=== PATIENT | male | born 1940 | race Caucasian/White ===

== ENCOUNTER → 2017-08-03 | Outpatient (CLI) | payer OTHER ==
[~2017-08-03] MED LIST: AMLO-96 PO; ASPI81TA86 PO; ATEN-65 PO; ATR80PT PO; AZIT-17 PO; CHOL10005 PO; CLOP75TA PO; FLU180SY9 IM; LAMO200T3 PO; LEVO75TA73 PO; RANI-318 PO
== END ==
LOC: RESP 02:49
PROVIDERS: ATTEND Internal Medicine
DX: R56.9 Unspecified convulsions (principal)
CPT/HCPCS: 95819

== ENCOUNTER → 2017-10-30 | Outpatient (CLI) | payer MEDICARE ==
[~2017-10-30] MED LIST changes: +LAMO100T5 PO; +LAMO50TA PO
[2017-10-30 09:00] LABS: PLATELET COUNT, AUTOMATED 203 K/uL (150-450)
[2017-10-30 09:30] LABS: LDL CHOLESTEROL 55 mg/dl
== END ==
LOC: LAB 08:41
PROVIDERS: ATTEND Internal Medicine
DX: I25.10 Atherosclerotic heart disease of native coronary artery without angina pectoris (principal); I10 Essential (primary) hypertension; R73.9 Hyperglycemia, unspecified; E03.9 Hypothyroidism, unspecified; E78.5 Hyperlipidemia, unspecified
CPT/HCPCS: 36415; 82040; 82247; 82310; 82374; 82435; 82465; 82565; 82947; 83036; 83718; 84075; 84132; 84155; 84295; 84443; 84450; 84460; 84478; 84520; 85025

== ENCOUNTER 2017-12-03 11:51 | Emergency (ER) | payer MEDICARE, OTHER ==
--- NOTE | 2017-12-03 12:05 | ER Report ---
History and Physical Time Seen By MD: 12:05 Hx. of Stated Complaint: pt presents with dizziness for an hour, pressure in head and down back of r neck. Thinks he may be slurring his words, but sound clear at this time, feels clammy, chilled HPI/ROS CHIEF COMPLAINT: Headache, chills HISTORY OF PRESENT ILLNESS: 77-year-old male patient presents to emergency room with complaint of headache and chills. Patient states this been going on for the past 2 hours. He states that he felt pressure in his back that radiated up to his head. He states that he hadn't developed a headache on the right side. He states that his speech was slurred, however that has resolved. He states that he has felt a little bit dizzy. Patient states that is noticed that his right eye is slightly blurred. He states that this has not happened in the past. He states that he has had vision disturbances in the past when he is had MIs. He states that he is not having any difficulty breathing, no shortness of breath. He states that he has not taken any medication for this. He's not had any changes in his medication. He states that he is also noticed that he is sleeping a lot. States that he's tired in the morning, he will take naps after lunch, dinner. Cc sleeping well at night. He has been using his 's oxygen intermittently. REVIEW OF SYSTEMS: Respiratory: As noted above Cardiovascular: No chest pain, no palpitations. Gastrointestinal: No vomiting, no abdominal pain. Musculoskeletal: No back pain. Allergies: Coded Allergies: No Known Drug Allergies (Unverified , 12/03/17) Home Meds Active Scripts Atorvastatin (LIPITOR) 80 Mg Tab, 1 TAB PO QDAY, #90 TAB 3 Refills Prov:AMY MONTAGUE MD 11/16/17 Atenolol (ATENOLOL) 25 Mg Tablet, 1 TAB PO QDAY, #30 TAB Patient needs to complete labs before more refills are allotted Prov:AMY MONTAGUE MD 10/26/17 Clopidogrel Bisulfate (CLOPIDOGREL) 75 Mg Tablet, 1 TAB PO QDAY, #90 TAB 3 Refills Prov:AMY MONTAGUE MD 09/15/17 Levothyroxine Sodium (LEVOTHYROXINE SODIUM) 75 Mcg Tablet, 75 MCG PO QDAY, #90 TAB Prov:AMY MONTAGUE MD 08/27/17 Amlodipine Besylate (AMLODIPINE BESYLATE) 5 Mg Tablet, 1 TAB PO QDAY, #90 TAB Prov:AMY MONTAGUE MD 08/27/17 Ranitidine Hcl (RANITIDINE HCL) 150 Mg Tablet, 150 MG PO QDAY, #90 TAB Prov:AMY MONTAGUE MD 07/28/17 Reported Medications Aspirin (ASPIRIN EC) 81 Mg Tablet.dr, 2 TAB PO QDAY, TAB 04/09/17 Discontinued Reported Medications Cholecalciferol (Vitamin D3) (VITAMIN D3) 1,000 Unit Tablet, 1000 UNIT PO QDAY, TAB 04/09/17 Discontinued Scripts Lamotrigine (LAMOTRIGINE) 50 Mg Tab.er.24, 50 MG PO QDAY, #30 TAB Prov:AMY MONTAGUE MD 08/27/17 Lamotrigine (LAMOTRIGINE) 100 Mg Tab.er.24, 100 MG PO QDAY, #30 TAB Prov:AMY MONTAGUE MD 08/27/17 Azithromycin (Z-PACK) 250 Mg Tablet, 0 PO DIRECTED, #6 DOSE-PACK 5 days z pack Prov:AMY MONTAGUE MD 04/09/17 Past Medical/Surgical History Patient has a past medical history of OK, mini strokes, reflux, arthritis, fracture, prediabetic, hypothyroidism. Patient has a surgical history of CABG 4. Reviewed Nurses Notes: Yes Hx Substance Use Disorder: No Hx Alcohol Use: No Constitutional Vital Sign - Last 24 Hours 12/03/17 12/03/17 12/03/17 12/03/17 11:56 11:58 12:21 12:26 Temp 97.4 Pulse 51 48 49 Resp 20 13 19 B/P (MAP) 125/77 125/77 (93) Pulse Ox 92 O2 Delivery Room Air 12/03/17 12/03/17 12/03/17 12/03/17 12:30 12:56 13:00 13:26 Pulse 41 47 Resp 14 15 B/P (MAP) 114/79 (91) 98/57 (71) Pulse Ox 92 12/03/17 12/03/17 12/03/17 12/03/17 13:30 13:35 14:00 14:05 Pulse 45 48 Resp 15 15 B/P (MAP) 117/64 (81) 121/103 (109) Pulse Ox 97 99 12/03/17 12/03/17 12/03/17 12/03/17 14:10 15:30 15:40 15:40 Pulse 53 49 Resp 14 6 B/P (MAP) 156/87 (110) Pulse Ox 100 99 O2 Flow Rate 2.0 12/03/17 12/03/17 12/03/17 12/03/17 16:00 16:05 16:30 16:35 Pulse 50 50 Resp 15 23 B/P (MAP) 130/76 (94) 144/72 (96) Pulse Ox 100 99 12/03/17 12/03/17 12/03/17 12/03/17 17:00 17:05 17:30 17:35 Pulse 57 64 Resp 9 12 B/P (MAP) 131/94 (106) 118/83 (95) Pulse Ox 99 98 12/03/17 12/03/17 12/03/17 17:40 18:10 18:40 Pulse 63 56 67 Resp 16 15 23 Pulse Ox 95 Physical Exam General Appearance: The patient is alert, has no immediate need for airway protection and no signs of toxicity. Eyes: Pupils equal and round no pallor or injection. Extraocular movements intact. ENT, Mouth: Mucous membranes are moist. Tympanic membranes are pearly-palmer, auditory canals are patent. Respiratory: There are no retractions, lungs are clear to auscultation. Cardiovascular: Regular rate and rhythm. Gastrointestinal: Abdomen is soft and non tender, no masses, bowel sounds normal. Neurological: Patient is alert and oriented 4, cranial nerves II through XII grossly intact. Skin: Warm and dry, no rashes. Musculoskeletal: Neck is supple non tender. Extremities are nontender, nonswollen and have full range of motion. DIFFERENTIAL DIAGNOSIS: After history and physical exam differential diagnosis was considered for headache including but not limited to subarachnoid hemorrhage , migraine headache, tension headache and infectious causes such as meningitis, pharyngitis and sinusitis. Medical Decision Making Data Points Result Diagram: 12/03/17 1210 12/03/17 1210 Laboratory Hematology Test 12/03/17 12:10 12/03/17 12:50 12/03/17 16:30 12/03/17 17:50 Red Blood Count 4.93 M/uL (4.00-5.60) Mean Corpuscular Volume 88.3 fL (80.0-96.0) Mean Corpuscular Hemoglobin 29.7 pg (26.0-33.0) Mean Corpuscular Hemoglobin Concent 33.7 g/dL (32.0-36.0) Red Cell Distribution Width 14.8 % (11.5-14.5) Mean Platelet Volume 8.8 fL (7.2-11.1) Neutrophils (%) (Auto) 57.4 % (39.4-72.5) Lymphocytes (%) (Auto) 25.1 % (17.6-49.6) Monocytes (%) (Auto) 10.2 % (4.1-12.4) Eosinophils (%) (Auto) 5.8 % (0.4-6.7) Basophils (%) (Auto) 1.5 % (0.3-1.4) Nucleated RBC Relative Count (auto) 0.1 /100WBC Neutrophils # (Auto) 3.6 K/uL (2.0-7.4) Lymphocytes # (Auto) 1.6 K/uL (1.3-3.6) Monocytes # (Auto) 0.6 K/uL (0.3-1.0) Eosinophils # (Auto) 0.4 K/uL (0.0-0.5) Basophils # (Auto) 0.1 K/uL (0.0-0.1) Nucleated RBC Absolute Count (auto) 0.00 K/uL Sodium Level 139 mmol/L (137-145) Potassium Level 3.9 mmol/L (3.5-5.0) Chloride Level 105 mmol/L (98-107) Carbon Dioxide Level 22 mmol/L (22-30) Blood Urea Nitrogen 19 mg/dl (9-21) Creatinine 0.90 mg/dl (0.66-1.25) Glomerular Filtration Rate Calc > 60.0 Random Glucose 101 mg/dl (75-110) Calcium Level 8.7 mg/dl (8.4-10.2) Total Bilirubin 0.7 mg/dl (0.2-1.3) Aspartate Amino Transf (AST/SGOT) 25 U/L (0-35) Alanine Aminotransferase (ALT/SGPT) 23 U/L (0-56) Alkaline Phosphatase 104 U/L (0-126) Troponin I < 0.012 ng/ml Total Protein 6.7 g/dl (6.3-8.2) Albumin 4.0 g/dl (3.5-5.0) Prothrombin Time 13.8 seconds (12.0-14.4) Prothromb Time International Ratio 1.05 Activated Partial Thromboplast Time 29 seconds (23-35) Urine Color Yellow Urine Clarity Clear Urine pH 5.0 pH (4.8-9.5) Urine Specific [place] 1.019 Urine Protein Negative mg/dL (NEGATIVE) Urine Glucose (UA) Negative mg/dL (NEGATIVE) Urine Ketones Negative mg/dL (NEGATIVE) Urine Blood Negative (NEGATIVE) Urine Nitrite Negative (NEGATIVE) Urine Bilirubin Negative (NEGATIVE) Urine Urobilinogen Negative mg/dL (0.2-1.9) Urine Leukocyte Esterase Negative (NEGATIVE) Urine RBC None /HPF (0-2/HPF) Urine WBC <1 /HPF (0-5/HPF) Urine Squamous Epithelial Cells None /LPF (</=FEW) Urine Bacteria Negative /HPF (NONE-FEW) Urine Mucus Few /HPF (NONE-FEW) Chemistry Test 12/03/17 12:10 12/03/17 12:50 12/03/17 16:30 12/03/17 17:50 White Blood Count 6.3 k/uL (4.5-11.0) Red Blood Count 4.93 M/uL (4.00-5.60) Hemoglobin 14.6 g/dL (14.0-18.0) Hematocrit 43.5 % (42.0-52.0) Mean Corpuscular Volume 88.3 fL (80.0-96.0) Mean Corpuscular Hemoglobin 29.7 pg (26.0-33.0) Mean Corpuscular Hemoglobin Concent 33.7 g/dL (32.0-36.0) Red Cell Distribution Width 14.8 % (11.5-14.5) Platelet Count 197 K/uL (150-450) Mean Platelet Volume 8.8 fL (7.2-11.1) Neutrophils (%) (Auto) 57.4 % (39.4-72.5) Lymphocytes (%) (Auto) 25.1 % (17.6-49.6) Monocytes (%) (Auto) 10.2 % (4.1-12.4) Eosinophils (%) (Auto) 5.8 % (0.4-6.7) Basophils (%) (Auto) 1.5 % (0.3-1.4) Nucleated RBC Relative Count (auto) 0.1 /100WBC Neutrophils # (Auto) 3.6 K/uL (2.0-7.4) Lymphocytes # (Auto) 1.6 K/uL (1.3-3.6) Monocytes # (Auto) 0.6 K/uL (0.3-1.0) Eosinophils # (Auto) 0.4 K/uL (0.0-0.5) Basophils # (Auto) 0.1 K/uL (0.0-0.1) Nucleated RBC Absolute Count (auto) 0.00 K/uL Glomerular Filtration Rate Calc > 60.0 Calcium Level 8.7 mg/dl (8.4-10.2) Total Bilirubin 0.7 mg/dl (0.2-1.3) Aspartate Amino Transf (AST/SGOT) 25 U/L (0-35) Alanine Aminotransferase (ALT/SGPT) 23 U/L (0-56) Alkaline Phosphatase 104 U/L (0-126) Troponin I < 0.012 ng/ml Total Protein 6.7 g/dl (6.3-8.2) Albumin 4.0 g/dl (3.5-5.0) Prothrombin Time 13.8 seconds (12.0-14.4) Prothromb Time International Ratio 1.05 Activated Partial Thromboplast Time 29 seconds (23-35) Urine Color Yellow Urine Clarity Clear Urine pH 5.0 pH (4.8-9.5) Urine Specific [place] 1.019 Urine Protein Negative mg/dL (NEGATIVE) Urine Glucose (UA) Negative mg/dL (NEGATIVE) Urine Ketones Negative mg/dL (NEGATIVE) Urine Blood Negative (NEGATIVE) Urine Nitrite Negative (NEGATIVE) Urine Bilirubin Negative (NEGATIVE) Urine Urobilinogen Negative mg/dL (0.2-1.9) Urine Leukocyte Esterase Negative (NEGATIVE) Urine RBC None /HPF (0-2/HPF) Urine WBC <1 /HPF (0-5/HPF) Urine Squamous Epithelial Cells None /LPF (</=FEW) Urine Bacteria Negative /HPF (NONE-FEW) Urine Mucus Few /HPF (NONE-FEW) Coagulation Test 12/03/17 12:50 Prothrombin Time 13.8 seconds Prothromb Time International Ratio 1.05 Activated Partial Thromboplast Time 29 seconds Urinalysis Test 12/03/17 16:30 Urine Color Yellow Urine Clarity Clear Urine pH 5.0 pH (4.8-9.5) Urine Specific [place] 1.019 Urine Protein Negative mg/dL (NEGATIVE) Urine Glucose (UA) Negative mg/dL (NEGATIVE) Urine Ketones Negative mg/dL (NEGATIVE) Urine Blood Negative (NEGATIVE) Urine Nitrite Negative (NEGATIVE) Urine Bilirubin Negative (NEGATIVE) Urine Urobilinogen Negative mg/dL (0.2-1.9) Urine Leukocyte Esterase Negative (NEGATIVE) Urine RBC None /HPF (0-2/HPF) Urine WBC <1 /HPF (0-5/HPF) Urine Squamous Epithelial Cells None /LPF (</=FEW) Urine Bacteria Negative /HPF (NONE-FEW) Urine Mucus Few /HPF (NONE-FEW) EKG/Imaging EKG Interpretation 12 lead EKG: Rhythm: Sinus bradycardia with ventricular rate of 47 bpm [place]: normal QRS: Right bundle branch block ST segments: normal Imaging EXAMINATION: Brain MRI without IV contrast Brain MRI with IV contrast, detailed pituitary HISTORY: Pituitary mass. COMPARISON: Head CT from the same day. TECHNIQUE: Multi-planar, multi-sequence brain MRI was performed before and after IV contrast. Thin section imaging was performed in the coronal and sagittal planes through the sella. CONTRAST: 15 mL of IV MultiHance FINDINGS: Pituitary: Pituitary gland: The pituitary gland is enlarged measuring 2.1 x 1.3 x 1.3 cm. The pituitary gland bulges into the suprasellar cistern. There are nodular hypoenhancing foci in the pituitary, measuring 6 x 6 x 8 mm on the right and 4 x 5 x 4 mm on the left. On the delayed imaging, there is persistent hypoenhancement of the nodule in the left side of the pituitary and there is hyperenhancement of the nodule in the right side of the pituitary. The pituitary stalk is mildly deviated towards the right. The nodule in the right side of the pituitary abuts but does not definitely invade the right cavernous sinus. Cavernous sinuses: Negative. Suprasellar cistern: The pituitary bulges into the suprasellar cistern. Visualized optic nerves / chiasm / tracts: The enlarged pituitary abuts the optic chiasm and adjacent prechiasmatic optic nerves. There does not appear to be any displacement of the optic chiasm or optic nerves. Rest of brain: Ventricles and sulci are normal in size. There are patchy T2 hyperintense foci scattered within the peripheral and deep cerebral white matter. No midline shift, hemorrhage, or acute infarct. Calvarium / scalp: Negative. Skull base: Negative. Visualized sinuses / orbits: Small mucous retention cyst or polyp in the left maxillary sinus. IMPRESSION: The pituitary gland is enlarged and bulges into the suprasellar cistern, abutting the optic chiasm and adjacent prechiasmatic optic nerves. There does not appear to be any displacement of the optic chiasm or optic nerves. There are nodules in the pituitary gland, on the right measuring 8 x 8 x 6 mm and the nodule and on the left measuring 4 x 5 x 4 mm. Primary differential consideration is pituitary adenomas with other etiologies not excluded. Report Dictated By: Vinod Wyman MD at 12/03/2017 3:45 PM Report E-Signed By: Vinod Wyman MD at 12/03/2017 4:06 PM CHEST PA AND LAT Indication: difficulty breathing Comparison: None. Findings: Lungs: Clear. Mediastinum/pulmonary vasculature: There are postoperative changes from a coronary artery bypass graft. Bones/soft tissues: Sternotomy wires are seen. IMPRESSION: Clear lungs. Report Dictated By: Kanu Guevara at 12/03/2017 1:24 PM Report E-Signed By: Kanu Guevara at 12/03/2017 1:28 PM EXAMINATION: Head CT without intravenous contrast HISTORY: Headache. Right-sided facial pain. COMPARISON: None. TECHNIQUE: Contiguous axial images were obtained from the skull base to the vertex without intravenous contrast. Sagittal and coronal reformatted images are also submitted. One of the following dose optimization techniques was utilized in the performance of this exam: Automated exposure control; adjustment of the mA and/ or kV according to the patient's size; or use of an iterative reconstruction technique. Specific details can be referenced in the facility's radiology CT exam operational policy. FINDINGS: Brain and intracranial structures: Ventricles and sulci are normal in size. Palmer-white matter differentiation is maintained. The pituitary is mildly enlarged, measuring 1.2 cm in craniocaudal dimension with convex superior border bulging into the suprasellar cistern. No midline shift, acute hemorrhage, or acute infarct. Vessels: Calcified plaque of the carotid siphons and distal vertebral arteries. Calvarium / scalp: Negative. Skull base / visualized face: Negative. Visualized sinuses / orbits: Negative. IMPRESSION: The pituitary is mildly enlarged and bulges into the suprasellar cistern. Recommend further evaluation with MRI of the pituitary with and without contrast. Report Dictated By: Vinod Wyman MD at 12/03/2017 1:38 PM Report E-Signed By: Vinod Wyman MD at 12/03/2017 1:46 PM ED Course/Re-evaluation ED Course Patient was admitted and examined, history and physical were obtained. Differential diagnoses were considered. On examination lungs are clear, heart is regular, abdomen soft nontender, patient does have cranial nerves II-XII grossly intact. Due to the headache and concern about possible intracranial hemorrhage a CT scan of the head was done, a CBC, CMP, troponin, EKG, chest x- ray, urinalysis and PT and PTT were done. CT scan of the head showed a large pituitary gland and recommended a MRI of the pituitary gland. That was ordered, the remainder the labs, EKG, chest x-ray were unremarkable. The MRI of the pituitary gland did show a large pituitary with nodules located on both the right and left sides. He did go into the suprasellar cistern, abutting the optic chasm and adjacent prechiasmatic optic nerves. At that time I discussed the case with neurosurgery in [place]. The recommendation was to talk to endocrinology. I did call and spoke with Dr. Mcqueen, endocrinology at [facility]. We did review the labs, MRI and CT scan. His recommendation was to check a cortisol, free T4, total T3, TSH, LH, FSH, prolactin and total testosterone levels. He states that if the cortisol was low to have the patient admitted and monitored and do a cortisol challenge test. However the cortisol was a send out. I did verify that with our lab. At that time I did discuss the case with Dr. Susie Castillo, hospitalist, who felt that with the patient being stable that he would be able to go home. She recommended I discussed the case with Dr. Zhang, on-call physician for the internal medicine group. I did speak with her, ran through this situation. She states that she would like to have him follow-up in the clinic, we decided that Thursday would be appropriate, hoping that we can get the lab tests back. I discussed this with the patient and his . They verbalized understanding and agreement with plan. We will go ahead and discharge patient home at this time. He is to limit his activity, he is completely of rest. He is return to emergency room if anything worsens. Patient verbalized understanding and agreement with plan. Decision to Disposition Date: Dec 03, 2017 Decision to Disposition Time: 18:44 Depart Departure Latest Vital Signs Vital Signs Date Time Temp Pulse Resp B/P (MAP) Pulse Ox O2 Delivery O2 Flow Rate FiO2 12/03/17 18:40 67 23 12/03/17 18:10 95 12/03/17 17:30 118/83 (95) 12/03/17 15:40 2.0 12/03/17 11:56 97.4 Room Air Impression: Primary Impression: Pituitary tumor Condition: Improved Disposition: HOME OR SELF-CARE Referrals: AMY MONTAGUE MD (PCP) Patient Instructions: Pituitary Adenoma (ED) Additional Instructions: No strenuous activity. Follow up with Dr. Coley on Thursday, They will call for an appointment tomorrow. Increase fluid intake. Talk with Dr. Coley about your sleeping. Return to the ER if condition worsens. Get plenty of rest. Continue with normal medications. I anticipate that you will need to follow up with Endocrinology in [place] , . (Pepe Lorenzo, [place]) VICENTE FELICIANO Dec 03, 2017 12:05
[2017-12-03] MEDS ORDERED: fentaNYL CITR 100 MCG/2 ML AMP IVP ONE (12:25)
[2017-12-03 12:43] LABS: PLATELET COUNT, AUTOMATED 197 K/uL (150-450)
--- NOTE | 2017-12-03 12:48 | EKG ---
FACILITY: [facility] PATIENT NAME: KAMLA CARMONA : [id number] MR: [id number] V: [id number] EXAM DATE: ORDERING PHYSICIAN: VICENTE FELICIANO TECHNOLOGIST: CHADWICK Jones Reason : NEURO PROBLEM Blood Pressure : / mmHG Vent. Rate : 047 BPM Atrial Rate : 047 BPM P-R Int : 188 ms QRS Dur : 154 ms QT Int : 540 ms P-R-T Axes : 026 060 007 degrees QTc Int : 477 ms Marked sinus bradycardia Right bundle branch block Abnormal ECG No previous ECGs available Confirmed by GUADALUPE CLEMENTS ([id number]) on 12/03/2017 3:36:21 PM Referred By: JODIE Confirmed By:GUADALUPE CLEMENTS
[2017-12-03 13:22] LABS: INR 1.05
--- NOTE | 2017-12-03 13:33 | RADIOLOGY IMAGING REPORT ---
[place] [facility] [place] NAME: Cal Mak : 1940 MR: [id number] V: [id number] EXAM DATE: ORDERING PHYSICIAN: VICENTE FELICIANO TECHNOLOGIST: Location: [facility] Patient: Cal Mak : 1940 Visit/Account:[id number] Date of Sevice: 12/03/2017 CHEST PA AND LAT Indication: difficulty breathing Comparison: None. Findings: Lungs: Clear. Mediastinum/pulmonary vasculature: There are postoperative changes from a coronary artery bypass yuniel t. Bones/soft tissues: Sternotomy wires are seen. IMPRESSION: Clear lungs. Report Dictated By: Kanu Guevara at 12/03/2017 1:24 PM Report E-Signed By: Kanu Guevara at 12/03/2017 1:28 PM WSN:[id number]
--- NOTE | 2017-12-03 13:52 | RADIOLOGY IMAGING REPORT ---
FACILITY: [facility] - [place] PATIENT NAME: Cal Mak : 1940 MR: [id number] V: [id number] EXAM DATE: ORDERING PHYSICIAN: VICENTE FELICIANO TECHNOLOGIST: Location: [facility] [place] Patient: Cal Mak : 1940 Visit/Account:[id number] Date of Sevice: 12/03/2017 EXAMINATION: Head CT without intravenous contrast HISTORY: Headache. Right-sided facial pain. COMPARISON: None. TECHNIQUE: Contiguous axial images were obtained from the skull base to the vertex without intraven ous contrast. Sagittal and coronal reformatted images are also submitted. One of the following dose optimization techniques was utilized in the performance of this exam: Autom ated exposure control; adjustment of the mA and/or kV according to the patient's size; or use of an i terative reconstruction technique. Specific details can be referenced in the facility's radiology C T exam operational policy. FINDINGS: Brain and intracranial structures: Ventricles and sulci are normal in size. Palmer-white matter differ entiation is maintained. The pituitary is mildly enlarged, measuring 1.2 cm in craniocaudal dimension with convex superior border bulging into the suprasellar cistern. No midline shift, acute hemorrhage, or acute infarct. Vessels: Calcified plaque of the carotid siphons and distal vertebral arteries. Calvarium / scalp: Negative. Skull base / visualized face: Negative. Visualized sinuses / orbits: Negative. IMPRESSION: The pituitary is mildly enlarged and bulges into the suprasellar cistern. Recommend further evaluatio n with MRI of the pituitary with and without contrast. Report Dictated By: Vinod Wyman MD at 12/03/2017 1:38 PM Report E-Signed By: Vinod Wyman MD at 12/03/2017 1:46 PM WSN:[id number]
[2017-12-03] MEDS ORDERED: GADOBENATE 529MG/1ML 15ML VIAL IVP ONE (14:19)
[2017-12-03] MEDS ORDERED: NS 0.9% 25 ML BAG 50 ML ONE (14:19)
--- NOTE | 2017-12-03 16:11 | RADIOLOGY IMAGING REPORT ---
FACILITY: [facility] - [place] PATIENT NAME: Cal Mak : 1940 MR: [id number] V: [id number] EXAM DATE: ORDERING PHYSICIAN: VICENTE FELICIANO TECHNOLOGIST: Location: [facility] Patient: Cal Mak : 1940 Visit/Account:[id number] Date of Sevice: 12/03/2017 EXAMINATION: Brain MRI without IV contrast Brain MRI with IV contrast, detailed pituitary HISTORY: Pituitary mass. COMPARISON: Head CT from the same day. TECHNIQUE: Multi-planar, multi-sequence brain MRI was performed before and after IV contrast. Thin s ection imaging was performed in the coronal and sagittal planes through the sella. CONTRAST: 15 mL of IV MultiHance FINDINGS: Pituitary: Pituitary gland: The pituitary gland is enlarged measuring 2.1 x 1.3 x 1.3 cm. The pituitary gland bu lges into the suprasellar cistern. There are nodular hypoenhancing foci in the pituitary, measuring 6 x 6 x 8 mm on the right and 4 x 5 x 4 mm on the left. On the delayed imaging, there is persistent hy poenhancement of the nodule in the left side of the pituitary and there is hyperenhancement of the no dule in the right side of the pituitary. The pituitary stalk is mildly deviated towards the right. Th e nodule in the right side of the pituitary abuts but does not definitely invade the right cavernous sinus. Cavernous sinuses: Negative. Suprasellar cistern: The pituitary bulges into the suprasellar cistern. Visualized optic nerves / chiasm / tracts: The enlarged pituitary abuts the optic chiasm and adjacent prechiasmatic optic nerves. There does not appear to be any displacement of the optic chiasm or opti c nerves. Rest of brain: Ventricles and sulci are normal in size. There are patchy T2 hyperintense foci scatte red within the peripheral and deep cerebral white matter. No midline shift, hemorrhage, or acute infarct. Calvarium / scalp: Negative. Skull base: Negative. Visualized sinuses / orbits: Small mucous retention cyst or polyp in the left maxillary sinus. IMPRESSION: The pituitary gland is enlarged and bulges into the suprasellar cistern, abutting the optic chiasm an d adjacent prechiasmatic optic nerves. There does not appear to be any displacement of the optic paris sm or optic nerves. There are nodules in the pituitary gland, on the right measuring 8 x 8 x 6 mm and the nodule and on t he left measuring 4 x 5 x 4 mm. Primary differential consideration is pituitary adenomas with other e tiologies not excluded. Report Dictated By: Vinod Wyman MD at 12/03/2017 3:45 PM Report E-Signed By: Vinod Wyman MD at 12/03/2017 4:06 PM WSN:[id number]
[2017-12-03 17:30] VITALS: BP 118/83
[2017-12-07] MEDS ORDERED: ATEN-65 PO (15:39)
== END 2017-12-03 18:55 | disposition home or self-care (01) ==
LOC: ER 11:52
DX: D35.2 Benign neoplasm of pituitary gland (principal); I45.10 Unspecified right bundle-branch block; R94.31 Abnormal electrocardiogram [ECG] [EKG]; R00.1 Bradycardia, unspecified; I25.2 Old myocardial infarction; E03.9 Hypothyroidism, unspecified
CPT/HCPCS: 36415; 70450; 70553; 71046; 81001; 82533; 83001; 83002; 84146; 84403; 84439; 84443; 84480; 84484; 85025; 85610; 85730; 93005; 96374; 99285; A9577; J3010; 82040; 82247; 82310; 82374; 82435; 82565; 82947; 84075; 84132; 84155; 84295; 84450; 84460; 84520

== ENCOUNTER → 2018-11-03 | Outpatient (CLI) | payer MEDICARE, OTHER ==
[~2018-11-03] MED LIST changes: +AMLO-125 PO; -AMLO-96 PO; +LEVO50TA86 PO
[2018-11-03 09:19] LABS: PLATELET COUNT, AUTOMATED 226 K/uL (150-450)
[2018-11-03 09:31] LABS: LDL CHOLESTEROL 47 mg/dl
== END ==
LOC: LAB 08:30
PROVIDERS: ATTEND Internal Medicine
DX: Z12.5 Encounter for screening for malignant neoplasm of prostate (principal); D49.7 Neoplasm of unspecified behavior of endocrine glands and other parts of nervous system; I25.10 Atherosclerotic heart disease of native coronary artery without angina pectoris; R73.9 Hyperglycemia, unspecified; E03.9 Hypothyroidism, unspecified; E78.49 Other hyperlipidemia; Z95.1 Presence of aortocoronary bypass graft
CPT/HCPCS: 36415; 81001; 83036; 84146; 84439; 84443; 85025; G0103; 82040; 82247; 82310; 82374; 82435; 82465; 82565; 82947; 83718; 84075; 84132; 84153; 84155; 84295; 84450; 84460; 84478; 84520

== ENCOUNTER 2018-12-31 21:16 | Emergency (ER) | payer MEDICARE, OTHER ==
[2018-12-31 21:21] VITALS: BP 138/65
--- NOTE | 2018-12-31 21:25 | ER Report ---
History and Physical Time Seen By : 21:22 Hx. of Stated Complaint: PT SLAMMED HAND BETWEEN DOOR AND HANDICAP CART. PT HAS SEVERAL SKIN TEARS ON POSTERIOR LATERAL SIDE OF LEFT HAND. HPI/ROS CHIEF COMPLAINT: Laceration HISTORY OF PRESENT ILLNESS: 78-year-old male patient presents to emergency room with complaint of laceration to the left hand. Patient states that he was putting his 's electric stroller Way. He states that he was using a ramp lost control and his hand smashed between the scooter and the metal door. He states he has lacerations to the left hand. States that they're shallow, but wash them out and was unsure when his last tetanus shot was. At that time he decided to come into the emergency room for evaluation. Patient states the pain is minimal. Denies any numbness tingling. He is able to move his hand without any difficulties. Patient has not taken any medication for this. Allergies: Coded Allergies: No Known Drug Allergies (Unverified , 12/31/18) Home Meds Active Scripts Clopidogrel Bisulfate (CLOPIDOGREL) 75 Mg Tablet, 1 TAB PO QDAY, #90 TAB 4 Refills Prov:AMY MONTAGUE MD 12/21/18 Levothyroxine Sodium (LEVOTHYROXINE SODIUM) 50 Mcg Tablet, 50 MCG PO QDAY, #90 TAB 4 Refills Prov:AMY MONTAGUE MD 12/21/18 Atenolol (ATENOLOL) 25 Mg Tablet, 1 TAB PO QDAY, #90 TAB 4 Refills Prov:AMY MONTAGUE MD 12/21/18 Atorvastatin (LIPITOR) 80 Mg Tab, 1 TAB PO QDAY, #90 TAB 3 Refills Prov:AMY MONTAGUE MD 11/25/18 Amlodipine Besylate (AMLODIPINE BESYLATE) 5 Mg Tablet, 1 TAB PO QDAY, #90 TAB 3 Refills Prov:AMY MONTAGUE MD 11/25/18 Ranitidine Hcl (RANITIDINE HCL) 150 Mg Tablet, 150 MG PO QDAY, #90 TAB 2 Refills Prov:AMY MONTAGUE MD 11/02/18 Reported Medications Aspirin (ASPIRIN EC) 81 Mg Tablet., 2 TAB PO QDAY, TAB 04/09/17 Past Medical/Surgical History Patient has a past medical history of AR, mini strokes, reflux, arthritis, fracture, prediabetic, hypothyroidism. Patient has a surgical history of CABG 4. Reviewed Nurses Notes: Yes Smoking Status: Never Smoker Hx Substance Use Disorder: No Hx Alcohol Use: No Constitutional Vital Sign - Last 24 Hours 12/31/18 21:21 Temp 98.4 Pulse 62 Resp 16 B/P (MAP) 138/65 Pulse Ox 93 O2 Delivery Room Air Physical Exam General appearance: Alert no distress. Respiratory: Chest is non tender, lungs are clear to auscultation. Cardiac: Regular rate and rhythm. Skin: Patient does have 3 skin tears to the left hand, there is no active bleeding at this time. DIFFERENTIAL DIAGNOSIS: After history and physical exam differential diagnosis was considered for skin tears. Medical Decision Making ED Course/Re-evaluation ED Course Patient is admitted and examined, history and physical were obtained. Differential diagnoses were considered. On examination lungs are clear, heart is regular. Patient does have skin tears to the left hand, they appear to be shallow in nature. We anesthetized the hand using M-mode cream. We then cleaned the hand, dressed it with a Tegaderm. Patient tolerated procedure well. We will discharge him on this time. He is to follow-up with his primary care provider with any concerns. Patient verbalized understanding to the plan. Decision to Disposition Date: Dec 31, 2018 Decision to Disposition Time: 21:42 Depart Departure Latest Vital Signs Vital Signs Date Time Temp Pulse Resp B/P (MAP) Pulse Ox O2 Delivery O2 Flow Rate FiO2 12/31/18 21:21 98.4 62 16 138/65 93 Room Air Impression: Primary Impression: Skin tear of hand without complication Condition: Improved Disposition: HOME OR SELF-CARE Referrals: AMY MONTAGUE MD (PCP) Patient Instructions: Skin Tear (ED) Additional Instructions: Leave the tega-derm on until if falls off. Keep hand clean. Follow up with your primary care provider with any concerns. Get plenty of rest. Continue with your current medications. Problem Qualifiers Primary Impression: Skin tear of hand without complication Encounter type: initial encounter Laterality: left Qualified Codes: S61.412A - Laceration without foreign body of left hand, initial encounter VICENTE FELICIANO Dec 31, 2018 21:25
[2018-12-31] MEDS ORDERED: LIDOCAINE/PRILOCAINE 5 GM TUBE TP ONE (21:35)
== END 2018-12-31 22:30 | disposition home or self-care (01) ==
LOC: ER 21:36
DX: S61.412A Laceration without foreign body of left hand, initial encounter (principal); W23.0XXA Caught, crushed, jammed, or pinched between moving objects, initial encounter
CPT/HCPCS: 99282; A9270